=== PATIENT | male | born 1965 | race Caucasian/White ===

== ENCOUNTER → 2024-04-06 09:34 | Outpatient (REF) | payer BC, SELFPAY | LOC: MRI 3T 09:34 | PROVIDERS: ATTENDING PHYSICIAN Urology; FAMILY PHYSICIAN Family Medicine | DX: R97.20 Elevated prostate specific antigen [PSA] (principal) | CPT/HCPCS: 72197; A9575 ==

== ENCOUNTER → 2024-05-20 06:16 | Day surgery (SDC) | payer BC, SELFPAY | LOC: GI 06:16 | PROVIDERS: ATTENDING PHYSICIAN Specialist | DX: Z12.11 Encounter for screening for malignant neoplasm of colon (principal); Z15.01 Genetic susceptibility to malignant neoplasm of breast; K57.30 Diverticulosis of large intestine without perforation or abscess without bleeding; Z83.719 Family history of colon polyps, unspecified | CPT/HCPCS: G0105 ==

== ENCOUNTER → 2024-12-06 17:45 | Outpatient (REF) | payer BC, SELFPAY | LOC: WDC 17:45 | PROVIDERS: ATTENDING PHYSICIAN Surgery; FAMILY PHYSICIAN Family Medicine | DX: Z12.31 Encounter for screening mammogram for malignant neoplasm of breast (principal); Z15.01 Genetic susceptibility to malignant neoplasm of breast; Z15.89 Genetic susceptibility to other disease | CPT/HCPCS: 77063; 77067 ==

== ENCOUNTER → 2025-04-26 18:12 | Outpatient (REF) | payer BC, SELFPAY | LOC: MRI 3T 18:12 | PROVIDERS: ATTENDING PHYSICIAN Urology; FAMILY PHYSICIAN Family Medicine | DX: Z15.01 Genetic susceptibility to malignant neoplasm of breast (principal); Z15.03 Genetic susceptibility to malignant neoplasm of prostate; Z15.09 Genetic susceptibility to other malignant neoplasm | CPT/HCPCS: 72197; A9575 ==